=== PATIENT | male | born 1940 | race Caucasian/White ===

== ENCOUNTER 2022-12-12 05:58 | Day surgery (SDC) | payer MEDICARE ==
[2022-12-11 10:54] VITALS: BMI 27.5
[2022-12-12] MEDS ORDERED: Heparin 10,000 UNITS/ 10 ML VIAL ONE (06:15)
[2022-12-12] MEDS ORDERED: Lidocaine 1% (PF) 30 ML VIAL ONE (06:15)
[2022-12-12] MEDS ORDERED: Nitroglycerin 50 MG/250 ML BOT 0 ML ONE (06:15)
[2022-12-12 07:22] LABS: SARS-CoV-2 NAA Rapid Test DETECTED (NotDetected)
== END 2022-12-12 07:09 | disposition home or self-care (01) ==
LOC: CCL 05:58
PROVIDERS: ATTEND Internal Medicine Cardiovascular Disease
DX: U07.1 COVID-19 (principal); R94.39 Abnormal result of other cardiovascular function study; I25.10 Atherosclerotic heart disease of native coronary artery without angina pectoris; I49.3 Ventricular premature depolarization; I47.20 Ventricular tachycardia, unspecified; I35.1 Nonrheumatic aortic (valve) insufficiency; E78.00 Pure hypercholesterolemia, unspecified; I10 Essential (primary) hypertension; R73.03 Prediabetes; E03.9 Hypothyroidism, unspecified; I25.2 Old myocardial infarction; Z53.09 Procedure and treatment not carried out because of other contraindication; Z87.891 Personal history of nicotine dependence; Z79.82 Long term (current) use of aspirin; Z79.890 Hormone replacement therapy; Z79.899 Other long term (current) drug therapy; Z88.5 Allergy status to narcotic agent; Z95.5 Presence of coronary angioplasty implant and graft
CPT/HCPCS: J1644; J2001; U0002

== ENCOUNTER 2022-12-27 13:42 | Inpatient (IN) | payer MEDICARE ==
[2022-12-27 14:25] LABS: #Basophils 0.1 thou/uL (0.0-0.2); #Eosinphils 0.5 thou/uL (0.0-0.7); #Lymphocytes 2.6 thou/uL (1.20-3.40); #Monocytes 0.8 thou/uL (0.11-0.59); #Neutrophils 5.1 thou/uL (1.40-6.50); %Basophils 1.1 % (0.0-1.0); %Eosinophils 5.4 % (0.0-10.0); %Lymphocytes 28.6 % (21.0-51.0); %Monocytes 8.9 % (0.0-10.0); %Neutrophils 56.1 % (42.0-75.0); Hemoglobin 14.2 g/dL (14.0-18.0); Mean Corpuscular HGB CONC 32.5 g/dL (32.0-36.0); Mean Corpuscular Hemoglobin 33.1 pg (27.0-31.0); Mean Platelet Volume 7.7 fL (7.4-10.4); Platelet Count 281 10x3/uL (130-400)
[2022-12-27 14:44] LABS: ALT (SGPT) 42 U/L (8-55); AST (SGOT) 37 U/L (5-34); Albumin 4.1 g/dL (3.4-4.8); Alkaline Phosphatase 67 U/L (40-110); Anion Gap 15 mmol/L (10-20); BUN (Urea Nitrogen) 30 mg/dL (8.4-25.7); Bilirubin, Total 1.2 mg/dL (0.2-1.2); CRP (Inflammatory) Less than 0.50 mg/dL (= or < 0.5); Calc. Creatinine Clearance 0 mL/min (70-130); Calcium 9.3 mg/dL (7.8-10.44); Carbon Dioxide 22 mmol/L (23-31); Chloride 107 mmol/L (98-107); Estimated GFR 50; Globulin 2.5 g/dL (2.4-3.5); Glucose 117 mg/dL (83-110); Magnesium 1.9 mg/dL (1.6-2.6); Potassium 4.1 mmol/L (3.5-5.1); Protein, Total 6.6 g/dL (5.8-8.1); Sodium 140 mmol/L (136-145)
[2022-12-27 15:06] LABS: CKMB 2.4 ng/mL (0-6.6)
[2022-12-27] MEDS ORDERED: Aspirin 325 MG TAB ONE (16:03)
[2022-12-27] MEDS ORDERED: Furosemide 40 MG/4 ML VIAL ONE (16:03)
[2022-12-27] MEDS ORDERED: Acetaminophen 325 MG TAB PO PRN (17:32)
[2022-12-27] MEDS ORDERED: Senokot S 8.6-50 MG TAB PO PRN (17:32)
[2022-12-27] MEDS ORDERED: Ondansetron PF 4 MG/2 ML Vial IVP PRN (17:32)
[2022-12-27] MEDS ORDERED: Bisacodyl 5 MG TAB PO PRN (17:32)
[2022-12-27] MEDS ORDERED: tiZANidine HCl 4 MG TAB PO PRN (17:54)
[2022-12-27 17:57] LABS: Troponin I 0.046 ng/mL (< 0.028)
[2022-12-27 18:45] VITALS: BMI 26.5
[2022-12-27] MEDS ORDERED: Aspirin 81 mg Enteric Coated Tablet PO SCH (18:45)
[2022-12-27] MEDS ORDERED: Communication Order-Pharmacy FS SCH (20:00)
[2022-12-27] MEDS: Carvedilol 6.25 MG TAB PO SCH (20:28)
[2022-12-27] MEDS: Famotidine 20 MG TAB PO SCH (20:29)
[2022-12-27] MEDS: Atorvastatin Calcium 40 MG TAB PO SCH (20:29)
[2022-12-27 20:59] LABS: Troponin I 0.041 ng/mL (< 0.028)
[2022-12-28] MEDS ORDERED: Sodium Chloride 0.9% 500 ML IV SCH ×2 (00:01→11:00)
[2022-12-28 04:22] LABS: #Basophils 0.1 thou/uL (0.0-0.2); #Eosinphils 0.6 thou/uL (0.0-0.7); #Lymphocytes 2.7 thou/uL (1.20-3.40); #Monocytes 0.8 thou/uL (0.11-0.59); #Neutrophils 2.5 thou/uL (1.40-6.50); %Basophils 1.1 % (0.0-1.0); %Eosinophils 8.9 % (0.0-10.0); %Lymphocytes 40.6 % (21.0-51.0); %Monocytes 12.5 % (0.0-10.0); %Neutrophils 36.9 % (42.0-75.0); Hemoglobin 12.3 g/dL (14.0-18.0); Mean Corpuscular Hemoglobin 34.7 pg (27.0-31.0); Mean Platelet Volume 7.7 fL (7.4-10.4); Platelet Count 216 10x3/uL (130-400); RBC Distribution Width 11.9 % (11.5-14.5); Red Blood Cell (RBC) Count 3.55 mill/uL (4.70-6.10); White Blood Cell (WBC) Count 6.6 10x3/uL (4.8-10.8)
[2022-12-28] MEDS ORDERED: guaiFENesin ER 600 MG TAB PO SCH (04:30)
[2022-12-28 04:38] LABS: Hemoglobin A1c 5.5 % (4.0-6.0)
[2022-12-28 04:51] LABS: Anion Gap 12 mmol/L (10-20); BUN (Urea Nitrogen) 32 mg/dL (8.4-25.7); Calc. Creatinine Clearance 49 mL/min (70-130); Calcium 8.8 mg/dL (7.8-10.44); Carbon Dioxide 23 mmol/L (23-31); Cardiac Risk 2.4 (Less than 4.5); Chloride 109 mmol/L (98-107); Cholesterol 98 mg/dl (< 200 Desired); Estimated GFR 45; Glucose 93 mg/dL (83-110); HDL Cholesterol 41 mg/dL (>60 Neg Risk); LDL Cholesterol, Calculated 48 mg/dL; Potassium 3.8 mmol/L (3.5-5.1); Sodium 140 mmol/L (136-145); Triglycerides 47 mg/dL (Less than 150)
[2022-12-28] MEDS: Famotidine 20 MG TAB PO SCH ×2 (05:37→22:08)
[2022-12-28] MEDS: Levothyroxine Sodium 125 MCG TAB PO SCH (05:40)
[2022-12-28] MEDS: Carvedilol 6.25 MG TAB PO SCH ×2 (05:42→22:08)
[2022-12-28] MEDS ORDERED: Verapamil 5 MG/2 ML VIAL ONE (09:26)
[2022-12-28] MEDS ORDERED: Heparin 10,000 UNITS/ 10 ML VIAL ONE (09:26)
[2022-12-28] MEDS ORDERED: Lidocaine 1% PF 5 ML VIAL ONE (09:26)
[2022-12-28] MEDS ORDERED: Nitroglycerin 50 MG/250 ML BOT 250 ML ONE (09:26)
[2022-12-28] MEDS ORDERED: Iopamidol 370 76% 100 ML VIAL ONE (09:49)
[2022-12-28] MEDS ORDERED: fentaNYL 50 mcg/mL 1 mL Vial ONE (10:19)
[2022-12-28] MEDS ORDERED: Midazolam HCl 2 mg/2 ml Vial ONE (10:19)
[2022-12-28] MEDS ORDERED: Nitroglycerin 0.4 MG TAB (25 Tab Bottle) SL PRN (10:49)
[2022-12-28] MEDS ORDERED: Sodium Chloride 0.9% 200 ML IV PRN (10:49)
[2022-12-28] MEDS ORDERED: Acetaminophen/Codeine 30-300mg Tablet PO PRN (10:49)
[2022-12-28] MEDS: Atorvastatin Calcium 40 MG TAB PO SCH (22:08)
[2022-12-28] MEDS: guaiFENesin ER 600 MG TAB PO SCH (22:08)
[2022-12-29 04:36] LABS: #Basophils 0.1 thou/uL (0.0-0.2); #Eosinphils 0.5 thou/uL (0.0-0.7); #Lymphocytes 2.2 thou/uL (1.20-3.40); #Monocytes 0.7 thou/uL (0.11-0.59); #Neutrophils 2.8 thou/uL (1.40-6.50); %Basophils 1.1 % (0.0-1.0); %Eosinophils 7.9 % (0.0-10.0); %Lymphocytes 34.6 % (21.0-51.0); %Monocytes 11.2 % (0.0-10.0); %Neutrophils 45.2 % (42.0-75.0); Hemoglobin 12.3 g/dL (14.0-18.0); Mean Corpuscular HGB CONC 34.6 g/dL (32.0-36.0); Mean Corpuscular Hemoglobin 35.6 pg (27.0-31.0); Mean Platelet Volume 7.5 fL (7.4-10.4); Platelet Count 209 10x3/uL (130-400); RBC Distribution Width 11.9 % (11.5-14.5); Red Blood Cell (RBC) Count 3.47 mill/uL (4.70-6.10); White Blood Cell (WBC) Count 6.3 10x3/uL (4.8-10.8)
[2022-12-29 04:55] LABS: Anion Gap 12 mmol/L (10-20); BUN (Urea Nitrogen) 26 mg/dL (8.4-25.7); Calc. Creatinine Clearance 54 mL/min (70-130); Calcium 8.6 mg/dL (7.8-10.44); Carbon Dioxide 21 mmol/L (23-31); Chloride 112 mmol/L (98-107); Estimated GFR 50; Glucose 93 mg/dL (83-110); Potassium 3.8 mmol/L (3.5-5.1); Sodium 141 mmol/L (136-145)
[2022-12-29] MEDS: Levothyroxine Sodium 125 MCG TAB PO SCH (05:48)
[2022-12-29] MEDS ORDERED: Clopidogrel Bisulfate 75 MG TAB PO SCH (09:00)
[2022-12-29] MEDS: Carvedilol 6.25 MG TAB PO SCH (09:21)
[2022-12-29] MEDS: guaiFENesin ER 600 MG TAB PO SCH (09:22)
[2022-12-29] MEDS: Famotidine 20 MG TAB PO SCH (09:22)
[2022-12-29 15:59] VITALS: TEMP 98.3
[2022-12-29 18:11] VITALS: BP 112/62
[2022-12-30] MEDS ORDERED: Aspirin 81 mg Enteric Coated Tablet PO SCH (09:00)
== END 2022-12-29 18:00 | disposition home or self-care (01) | DRG 287 ==
LOC: ERS 13:42 → 2NO 18:24 → OBSVTOIN 12-29 15:10
PROVIDERS: ADMIT Internal Medicine; ATTEND Internal Medicine
PROC: 4A023N7 Measurement of Cardiac Sampling and Pressure, Left Heart, Percutaneous Approach (ICD-10-PCS; principal; 2022-12-28)
PROC: B2111ZZ Fluoroscopy of Multiple Coronary Arteries using Low Osmolar Contrast (ICD-10-PCS; 2022-12-28)
DX: I25.119 Atherosclerotic heart disease of native coronary artery with unspecified angina pectoris (principal); E78.00 Pure hypercholesterolemia, unspecified; E03.9 Hypothyroidism, unspecified; I48.91 Unspecified atrial fibrillation; G89.29 Other chronic pain; N18.30 Chronic kidney disease, stage 3 unspecified; I12.9 Hypertensive chronic kidney disease with stage 1 through stage 4 chronic kidney disease, or unspecified chronic kidney disease; Z88.8 Allergy status to other drugs, medicaments and biological substances; Z79.82 Long term (current) use of aspirin; Z79.899 Other long term (current) drug therapy; Z98.890 Other specified postprocedural states; Z87.891 Personal history of nicotine dependence; Z86.16 Personal history of COVID-19; I25.2 Old myocardial infarction
CPT/HCPCS: 36415; 71045; 80048; 80053; 80061; 82553; 83036; 83735; 83880; 84439; 84443; 84484; 85025; 86140; 93005; 93458; 94760; 96372; 96374; 99152; C1769; C1894; G0378; J1644; J1650; J1940; J2250; J3010; J7030; Q9967

== ENCOUNTER 2023-01-05 06:18 | Day surgery (SDC) | payer MEDICARE ==
[2023-01-04 09:26] VITALS: BMI 26.5
[2023-01-05] MEDS ORDERED: Heparin 10,000 UNITS/ 10 ML VIAL ONE (06:52)
[2023-01-05] MEDS ORDERED: Lidocaine 1% (PF) 30 ML VIAL ONE ×2 (06:52→08:27)
[2023-01-05] MEDS ORDERED: Midazolam HCl 2 mg/2 ml Vial ONE (07:55)
[2023-01-05] MEDS ORDERED: fentaNYL 50 mcg/mL 1 mL Vial ONE (07:55)
[2023-01-05] MEDS ORDERED: PHENYLEPHRINE-NS 100 MCG/ML 10 ML SYRINGE ONE (08:00)
[2023-01-05] MEDS ORDERED: Atropine Sulfate 1 mg/10 ml Syringe ONE (08:00)
[2023-01-05] MEDS ORDERED: Verapamil 5 MG/2 ML VIAL ONE (08:19)
[2023-01-05] MEDS ORDERED: Nitroglycerin 50 MG/250 ML BOT 0 ML ONE (08:19)
[2023-01-05] MEDS ORDERED: Protamine Sulfate 50 MG/5 ML VIAL ONE (09:54)
[2023-01-05] MEDS ORDERED: Iopamidol 370 76% 100 ML VIAL ONE (11:07)
== END 2023-01-05 13:48 | disposition home or self-care (01) ==
LOC: CCL 06:18
PROVIDERS: ATTEND Internal Medicine Cardiovascular Disease
PROC: 4A023N7 Measurement of Cardiac Sampling and Pressure, Left Heart, Percutaneous Approach (ICD-10-PCS; principal; 2023-01-05)
PROC: B2111ZZ Fluoroscopy of Multiple Coronary Arteries using Low Osmolar Contrast (ICD-10-PCS; 2023-01-05)
DX: I25.10 Atherosclerotic heart disease of native coronary artery without angina pectoris (principal); I25.84 Coronary atherosclerosis due to calcified coronary lesion; I49.3 Ventricular premature depolarization; I49.1 Atrial premature depolarization; I47.1 Supraventricular tachycardia; I35.1 Nonrheumatic aortic (valve) insufficiency; E78.00 Pure hypercholesterolemia, unspecified; I12.9 Hypertensive chronic kidney disease with stage 1 through stage 4 chronic kidney disease, or unspecified chronic kidney disease; N18.30 Chronic kidney disease, stage 3 unspecified; R73.03 Prediabetes; E03.9 Hypothyroidism, unspecified; I25.2 Old myocardial infarction; Z87.891 Personal history of nicotine dependence; Z79.02 Long term (current) use of antithrombotics/antiplatelets; Z79.82 Long term (current) use of aspirin; Z79.899 Other long term (current) drug therapy; Z88.5 Allergy status to narcotic agent
CPT/HCPCS: 85347 ×2; 93005; 93454; J3010; 93010; 99152; 99153; C1725; C1761; C1769; C1887; J0461; J1644; J2001; J2250; J2720; Q9967

== ENCOUNTER 2023-04-06 14:39 | Inpatient (IN) | payer OTHER, MEDICARE ==
[2023-04-06 15:14] LABS: #Basophils 0.1 thou/uL (0.0-0.2); #Eosinphils 0.2 thou/uL (0.0-0.7); #Monocytes 1.1 thou/uL (0.11-0.59); #Neutrophils 3.7 thou/uL (1.40-6.50); %Basophils 0.7 % (0.0-1.0); %Eosinophils 2.9 % (0.0-10.0); Hemoglobin 11.7 g/dL (14.0-18.0); Mean Corpuscular HGB CONC 33.4 g/dL (32.0-36.0); Mean Corpuscular Volume 104.8 fl (78.0-98.0); Mean Platelet Volume 9.8 fL (7.4-10.4); Platelet Count 198 10x3/uL (130-400); Red Blood Cell (RBC) Count 3.34 mill/uL (4.70-6.10)
[2023-04-06 15:37] LABS: ALT (SGPT) 13 U/L (8-55); AST (SGOT) 23 U/L (5-34); Albumin 3.8 g/dL (3.4-4.8); Alkaline Phosphatase 55 U/L (40-110); Anion Gap 13 mmol/L (10-20); BUN (Urea Nitrogen) 32 mg/dL (8.4-25.7); Bilirubin, Total 0.6 mg/dL (0.2-1.2); Calc. Creatinine Clearance 0 mL/min (70-130); Calcium 8.8 mg/dL (7.8-10.44); Carbon Dioxide 21 mmol/L (23-31); Chloride 111 mmol/L (98-107); Estimated GFR 30; Globulin 2.1 g/dL (2.4-3.5); Glucose 120 mg/dL (83-110); Lipase 30 U/L (8-78); Potassium 4.2 mmol/L (3.5-5.1); Protein, Total 5.9 g/dL (5.8-8.1); Sodium 141 mmol/L (136-145)
[2023-04-06] MEDS ORDERED: Glucagon 1 MG/ML KIT IM PRN (17:31)
[2023-04-06] MEDS ORDERED: Ondansetron PF 4 MG/2 ML Vial IVP PRN (17:31)
[2023-04-06] MEDS ORDERED: hydrALAZINE 20 MG/ML VIAL SLOW IVP PRN (17:31)
[2023-04-06] MEDS ORDERED: Ipratropium/Albuterol 3 ML NEB NEB PRN (17:31)
[2023-04-06] MEDS ORDERED: Dextrose 50% Abboject 50 ML SYRINGE SLOW IVP PRN (17:31)
[2023-04-06] MEDS ORDERED: Ondansetron ODT 4 MG TAB PO PRN (17:31)
[2023-04-06] MEDS ORDERED: Dextrose 5% in Water 1,000 ML IV PRN (17:31)
[2023-04-06] MEDS ORDERED: Cyclobenzaprine 10 MG TAB PO PRN (17:45)
[2023-04-06] MEDS ORDERED: Rib Fracture Protocol PO SCH (17:45)
[2023-04-06] MEDS ORDERED: Ondansetron PF 4 MG/2 ML Vial ONE (18:23)
[2023-04-06] MEDS ORDERED: HYDROmorphone 0.5 MG/0.5 ML SYRINGE ONE (18:23)
[2023-04-06] MEDS: Ipratropium/Albuterol 3 ML NEB NEB SCH ×2 (19:00→22:37)
[2023-04-06] MEDS: Gabapentin 100 MG CAP PO SCH (20:51)
[2023-04-06] MEDS: Famotidine 20 MG TAB PO SCH (20:52)
[2023-04-06 21:29] LABS: Phosphorus 3.6 mg/dL (2.3-4.7)
[2023-04-06 21:46] VITALS: BMI 29.5
[2023-04-06] MEDS: traMADol HCl 50 MG TAB PO SCH (23:32)
[2023-04-06] MEDS: Acetaminophen 500 MG TAB PO SCH ×2 (23:32→23:33)
[2023-04-07] MEDS: traMADol HCl 50 MG TAB PO SCH ×4 (00:27→18:31)
[2023-04-07] MEDS: Ibuprofen 200 MG TAB PO SCH ×3 (00:27→23:37)
[2023-04-07 05:08] LABS: #Eosinphils 0.2 thou/uL (0.0-0.7); #Monocytes 1.1 thou/uL (0.11-0.59); #Neutrophils 3.7 thou/uL (1.40-6.50); %Basophils 0.4 % (0.0-1.0); %Eosinophils 3.6 % (0.0-10.0); %Monocytes 16.7 % (0.0-10.0); Hemoglobin 10.5 g/dL (14.0-18.0); Mean Corpuscular HGB CONC 33.3 g/dL (32.0-36.0); Mean Platelet Volume 9.8 fL (7.4-10.4); Platelet Count 165 10x3/uL (130-400); White Blood Cell (WBC) Count 6.7 10x3/uL (4.8-10.8)
[2023-04-07 06:12] LABS: Phosphorus 3.9 mg/dL (2.3-4.7)
[2023-04-07 06:20] LABS: Anion Gap 12 mmol/L (10-20); BUN (Urea Nitrogen) 29 mg/dL (8.4-25.7); Calc. Creatinine Clearance 43 mL/min (70-130); Calcium 8.6 mg/dL (7.8-10.44); Carbon Dioxide 22 mmol/L (23-31); Chloride 108 mmol/L (98-107); Estimated GFR 39; Glucose 127 mg/dL (83-110); Potassium 4.1 mmol/L (3.5-5.1); Sodium 138 mmol/L (136-145)
[2023-04-07] MEDS: Acetaminophen 500 MG TAB PO SCH ×3 (06:49→18:04)
[2023-04-07] MEDS: Ipratropium/Albuterol 3 ML NEB NEB SCH ×3 (07:25→18:33)
[2023-04-07] MEDS ORDERED: Non-Formulary Item 1 EACH (Carvedilol [Coreg] 12.5 MG Tab) PO SCH (09:00)
[2023-04-07] MEDS: Gabapentin 100 MG CAP PO SCH ×3 (09:03→20:46)
[2023-04-07] MEDS: Famotidine 20 MG TAB PO SCH ×2 (09:03→20:47)
[2023-04-07] MEDS: Levothyroxine Sodium 125 MCG TAB PO SCH (09:04)
[2023-04-07] MEDS: Clopidogrel Bisulfate 75 MG TAB PO SCH (09:04)
[2023-04-07] MEDS: Carvedilol 6.25 MG TAB PO SCH ×2 (09:08→20:47)
[2023-04-07] MEDS ORDERED: Sodium Chloride 0.9% 500 ML IV SCH (12:30)
[2023-04-07] MEDS: Atorvastatin Calcium 40 MG TAB PO SCH (20:46)
[2023-04-07] MEDS: Aspirin 81 mg Enteric Coated Tablet PO SCH (20:46)
[2023-04-07] MEDS ORDERED: Non-Formulary Item 1 EACH (Atorvastatin Calcium [Lipitor] 80 MG Tablet) PO SCH (21:00)
[2023-04-08] MEDS: Ipratropium/Albuterol 3 ML NEB NEB SCH ×3 (00:24→13:24)
[2023-04-08] MEDS: Acetaminophen 500 MG TAB PO SCH ×4 (01:12→18:15)
[2023-04-08] MEDS: traMADol HCl 50 MG TAB PO SCH ×4 (01:13→18:14)
[2023-04-08 05:09] LABS: #Basophils 0.1 thou/uL (0.0-0.2); #Eosinphils 0.5 thou/uL (0.0-0.7); #Monocytes 0.9 thou/uL (0.11-0.59); #Neutrophils 2.9 thou/uL (1.40-6.50); %Eosinophils 8.8 % (0.0-10.0); %Lymphocytes 26.4 % (21.0-51.0); %Monocytes 15.4 % (0.0-10.0); %Neutrophils 47.9 % (42.0-75.0); Hemoglobin 9.3 g/dL (14.0-18.0); Mean Corpuscular HGB CONC 32.2 g/dL (32.0-36.0); Mean Corpuscular Hemoglobin 34.3 pg (27.0-31.0); Mean Corpuscular Volume 106.6 fl (78.0-98.0); Mean Platelet Volume 10.1 fL (7.4-10.4); Platelet Count 149 10x3/uL (130-400); RBC Distribution Width 12.9 % (11.5-14.5); Red Blood Cell (RBC) Count 2.71 mill/uL (4.70-6.10); White Blood Cell (WBC) Count 6.1 10x3/uL (4.8-10.8)
[2023-04-08 05:44] LABS: Anion Gap 7 mmol/L (10-20); BUN (Urea Nitrogen) 36 mg/dL (8.4-25.7); Calc. Creatinine Clearance 37 mL/min (70-130); Calcium 8.3 mg/dL (7.8-10.44); Carbon Dioxide 24 mmol/L (23-31); Chloride 106 mmol/L (98-107); Estimated GFR 33; Glucose 104 mg/dL (83-110); Phosphorus 4.5 mg/dL (2.3-4.7); Potassium 4.3 mmol/L (3.5-5.1); Sodium 133 mmol/L (136-145)
[2023-04-08] MEDS: Ibuprofen 200 MG TAB PO SCH (06:42)
[2023-04-08] MEDS ORDERED: Sodium Chloride 0.9% 500 ML IV SCH (07:45)
[2023-04-08] MEDS: Levothyroxine Sodium 125 MCG TAB PO SCH (08:22)
[2023-04-08] MEDS: Tamsulosin HCl 0.4 MG CAP PO SCH (08:22)
[2023-04-08] MEDS: Carvedilol 6.25 MG TAB PO SCH ×2 (08:22→22:38)
[2023-04-08] MEDS: Gabapentin 100 MG CAP PO SCH ×3 (08:22→22:39)
[2023-04-08] MEDS: Famotidine 20 MG TAB PO SCH ×2 (08:23→22:39)
[2023-04-08] MEDS: Clopidogrel Bisulfate 75 MG TAB PO SCH (08:23)
[2023-04-08 15:59] LABS: Anion Gap 12 mmol/L (10-20); BUN (Urea Nitrogen) 33 mg/dL (8.4-25.7); Calc. Creatinine Clearance 40 mL/min (70-130); Calcium 8.3 mg/dL (7.8-10.44); Carbon Dioxide 22 mmol/L (23-31); Chloride 101 mmol/L (98-107); Estimated GFR 36; Glucose 99 mg/dL (83-110); Potassium 4.4 mmol/L (3.5-5.1); Sodium 131 mmol/L (136-145)
[2023-04-08] MEDS ORDERED: Sodium Chloride 0.9% 1,000 ML IV SCH (16:30)
[2023-04-08] MEDS: Atorvastatin Calcium 40 MG TAB PO SCH (22:38)
[2023-04-08] MEDS: Aspirin 81 mg Enteric Coated Tablet PO SCH (22:38)
[2023-04-09] MEDS: Acetaminophen 500 MG TAB PO SCH ×3 (01:11→12:08)
[2023-04-09] MEDS: traMADol HCl 50 MG TAB PO SCH ×3 (01:12→12:08)
[2023-04-09 04:24] LABS: #Basophils 0.1 thou/uL (0.0-0.2); #Eosinphils 0.5 thou/uL (0.0-0.7); #Monocytes 0.7 thou/uL (0.11-0.59); #Neutrophils 2.9 thou/uL (1.40-6.50); %Basophils 0.9 % (0.0-1.0); %Eosinophils 8.6 % (0.0-10.0); %Lymphocytes 25.9 % (21.0-51.0); %Monocytes 12.7 % (0.0-10.0); %Neutrophils 51.7 % (42.0-75.0); Hemoglobin 9.4 g/dL (14.0-18.0); Mean Corpuscular Hemoglobin 34.7 pg (27.0-31.0); Mean Corpuscular Volume 105.2 fl (78.0-98.0); Mean Platelet Volume 9.6 fL (7.4-10.4); Platelet Count 132 10x3/uL (130-400); RBC Distribution Width 12.5 % (11.5-14.5); Red Blood Cell (RBC) Count 2.71 mill/uL (4.70-6.10); White Blood Cell (WBC) Count 5.7 10x3/uL (4.8-10.8)
[2023-04-09 04:51] LABS: Anion Gap 10 mmol/L (10-20); BUN (Urea Nitrogen) 32 mg/dL (8.4-25.7); Calc. Creatinine Clearance 43 mL/min (70-130); Calcium 8.1 mg/dL (7.8-10.44); Carbon Dioxide 21 mmol/L (23-31); Chloride 103 mmol/L (98-107); Estimated GFR 40; Glucose 101 mg/dL (83-110); Magnesium 1.7 mg/dL (1.6-2.6); Phosphorus 3.8 mg/dL (2.3-4.7); Potassium 4.9 mmol/L (3.5-5.1); Sodium 129 mmol/L (136-145)
[2023-04-09] MEDS ORDERED: Milk Of Magnesia 30 ML UDCUP PO SCH (09:00)
[2023-04-09] MEDS ORDERED: Polyethylene Glycol 3350 17 GM Packet PO SCH (09:00)
[2023-04-09] MEDS ORDERED: Senokot S 8.6-50 MG TAB PO SCH (09:00)
[2023-04-09] MEDS ORDERED: Bisacodyl 10 MG SUPP PR SCH (09:00)
[2023-04-09] MEDS: Levothyroxine Sodium 125 MCG TAB PO SCH (09:49)
[2023-04-09] MEDS: Carvedilol 6.25 MG TAB PO SCH (09:49)
[2023-04-09] MEDS: Clopidogrel Bisulfate 75 MG TAB PO SCH (09:49)
[2023-04-09] MEDS: Gabapentin 100 MG CAP PO SCH (09:50)
[2023-04-09] MEDS: Famotidine 20 MG TAB PO SCH (09:50)
[2023-04-09] MEDS: Tamsulosin HCl 0.4 MG CAP PO SCH (09:50)
[2023-04-09 12:25] VITALS: BP 100/56; TEMP 96.5
[2023-04-09 12:33] LABS: Anion Gap 14 mmol/L (10-20); BUN (Urea Nitrogen) 31 mg/dL (8.4-25.7); Calc. Creatinine Clearance 42 mL/min (70-130); Calcium 8.6 mg/dL (7.8-10.44); Carbon Dioxide 20 mmol/L (23-31); Chloride 101 mmol/L (98-107); Estimated GFR 39; Glucose 86 mg/dL (83-110); Potassium 4.6 mmol/L (3.5-5.1); Sodium 130 mmol/L (136-145)
== END 2023-04-09 15:53 | disposition home health service (06) | DRG 184 ==
LOC: ERS 14:39 → 2NO 17:31
PROVIDERS: ADMIT Surgery; ATTEND Surgery
DX: S22.43XA Multiple fractures of ribs, bilateral, initial encounter for closed fracture (principal); I24.8 Other forms of acute ischemic heart disease; N17.9 Acute kidney failure, unspecified; E03.9 Hypothyroidism, unspecified; E78.5 Hyperlipidemia, unspecified; I50.9 Heart failure, unspecified; I11.0 Hypertensive heart disease with heart failure; I48.91 Unspecified atrial fibrillation; G89.29 Other chronic pain; R77.8 Other specified abnormalities of plasma proteins; D64.9 Anemia, unspecified; I25.10 Atherosclerotic heart disease of native coronary artery without angina pectoris; H54.7 Unspecified visual loss; Y92.89 Other specified places as the place of occurrence of the external cause; V89.2XXA Person injured in unspecified motor-vehicle accident, traffic, initial encounter; I25.2 Old myocardial infarction; Z98.890 Other specified postprocedural states; Z95.5 Presence of coronary angioplasty implant and graft; Z87.891 Personal history of nicotine dependence; Z88.8 Allergy status to other drugs, medicaments and biological substances
CPT/HCPCS: 36415; 36416; 70450; 71045; 71250; 72125; 74177; 80048; 80053; 82553; 83690; 83735; 83880; 84100; 84484; 85025; 93005; 96374; 96375; J1170; J2405; J7030; J7050; J7620

== ENCOUNTER 2023-04-09 19:35 | Inpatient (IN) | payer MEDICARE ==
[~2023-04-09 19:35] MED LIST: Iopamidol-370 76% 500 ML MDV (1 ML CHARGE) ONE
[2023-04-09] MEDS ORDERED: Acetaminophen 500 MG TAB ONE (20:07)
[2023-04-09 20:56] LABS: #Basophils 0.1 thou/uL (0.0-0.2); #Eosinphils 0.3 thou/uL (0.0-0.7); #Monocytes 0.9 thou/uL (0.11-0.59); #Neutrophils 4.6 thou/uL (1.40-6.50); %Basophils 0.7 % (0.0-1.0); %Eosinophils 3.9 % (0.0-10.0); %Lymphocytes 15.5 % (21.0-51.0); %Monocytes 12.3 % (0.0-10.0); %Neutrophils 67.3 % (42.0-75.0); Hemoglobin 10.5 g/dL (14.0-18.0); Mean Corpuscular HGB CONC 33.7 g/dL (32.0-36.0); Mean Corpuscular Hemoglobin 34.7 pg (27.0-31.0); Mean Platelet Volume 9.4 fL (7.4-10.4); Platelet Count 165 10x3/uL (130-400); RBC Distribution Width 12.5 % (11.5-14.5); Red Blood Cell (RBC) Count 3.03 mill/uL (4.70-6.10); White Blood Cell (WBC) Count 6.9 10x3/uL (4.8-10.8)
[2023-04-09 21:05] LABS: ALT (SGPT) 17 U/L (8-55); AST (SGOT) 37 U/L (5-34); Albumin 3.2 g/dL (3.4-4.8); Alkaline Phosphatase 52 U/L (40-110); Anion Gap 8 mmol/L (10-20); BUN (Urea Nitrogen) 34 mg/dL (8.4-25.7); Bilirubin, Total 0.8 mg/dL (0.2-1.2); Calc. Creatinine Clearance 0 mL/min (70-130); Calcium 8.5 mg/dL (7.8-10.44); Carbon Dioxide 20 mmol/L (23-31); Chloride 104 mmol/L (98-107); Estimated GFR 37; Globulin 2.3 g/dL (2.4-3.5); Glucose 113 mg/dL (83-110); Potassium 4.8 mmol/L (3.5-5.1); Protein, Total 5.5 g/dL (5.8-8.1); Sodium 127 mmol/L (136-145)
[2023-04-09] MEDS ORDERED: Ipratropium/Albuterol 3 ML NEB NEB PRN (22:53)
[2023-04-09] MEDS ORDERED: Ondansetron ODT 4 MG TAB PO PRN (22:53)
[2023-04-09] MEDS ORDERED: Dextrose 5% in Water 1,000 ML IV PRN ×2 (22:53→23:03)
[2023-04-09] MEDS ORDERED: Morphine 2 MG/ML VIAL SLOW IVP PRN (22:53)
[2023-04-09] MEDS ORDERED: hydrALAZINE 20 MG/ML VIAL SLOW IVP PRN (22:53)
[2023-04-09] MEDS ORDERED: traMADol HCl 50 MG TAB PO PRN (22:53)
[2023-04-09] MEDS ORDERED: Dextrose 50% Abboject 50 ML SYRINGE SLOW IVP PRN ×2 (22:53→23:03)
[2023-04-09] MEDS ORDERED: TETANUS, DIPHTHERIA TOX,ADULT (TDVAX) 0.5 ML VIAL IM ONE ×2 (22:53→23:03)
[2023-04-09] MEDS ORDERED: Glucagon 1 MG/ML KIT IM PRN ×2 (22:53→23:03)
[2023-04-09] MEDS ORDERED: Acetaminophen 325 MG TAB PO SCH (23:00)
[2023-04-09] MEDS ORDERED: Rib Fracture Protocol PO SCH (23:00)
[2023-04-09] MEDS ORDERED: TETANUS AND DIPHTHERIA TOX/PF 0.5 ML DISP.SYRIN IM SCH (23:15)
[2023-04-09] MEDS ORDERED: Cyclobenzaprine 10 MG TAB PO PRN (23:59)
[2023-04-10] MEDS: Sodium Chloride 0.9% 1,000 ML IV SCH ×2 (00:17→06:52)
[2023-04-10] MEDS: traMADol HCl 50 MG TAB PO SCH ×4 (00:26→22:39)
[2023-04-10] MEDS: Acetaminophen 500 MG TAB PO SCH ×5 (00:26→22:40)
[2023-04-10] MEDS ORDERED: TETANUS, DIPHTHERIA TOX,ADULT (TDVAX) 0.5 ML VIAL IM ONE ×2 (00:30→00:54)
[2023-04-10] MEDS ORDERED: Ipratropium/Albuterol 3 ML NEB ONE ×3 (02:46→12:41)
[2023-04-10] MEDS: Ipratropium/Albuterol 3 ML NEB NEB SCH ×4 (02:47→18:38)
[2023-04-10 03:18] VITALS: BMI 26.9
[2023-04-10] MEDS ORDERED: Ibuprofen 200 MG TAB PO SCH (06:00)
[2023-04-10] MEDS ORDERED: Acetaminophen 500 MG TAB ONE (06:23)
[2023-04-10] MEDS ORDERED: Ibuprofen 200 MG TAB ONE ×2 (06:24)
[2023-04-10] MEDS ORDERED: traMADol HCl 50 MG TAB ONE (06:24)
[2023-04-10] MEDS ORDERED: Famotidine 20 MG TAB ONE (10:44)
[2023-04-10] MEDS: Carvedilol 6.25 MG TAB PO SCH ×2 (10:51→19:36)
[2023-04-10] MEDS: Senokot S 8.6-50 MG TAB PO SCH ×2 (10:52→19:35)
[2023-04-10] MEDS: Famotidine 20 MG TAB PO SCH (10:52)
[2023-04-10] MEDS: Polyethylene Glycol 3350 17 GM Packet PO SCH (10:52)
[2023-04-10] MEDS: Gabapentin 100 MG CAP PO SCH ×3 (13:26→19:36)
[2023-04-10] MEDS ORDERED: traMADol HCl 50 MG TAB PO PRN (14:30)
[2023-04-10] MEDS ORDERED: Sodium Chloride 0.9% 1,000 ML IV SCH (14:45)
[2023-04-10] MEDS: Clopidogrel Bisulfate 75 MG TAB PO SCH (19:36)
[2023-04-11] MEDS: Ipratropium/Albuterol 3 ML NEB NEB SCH ×4 (00:53→19:13)
[2023-04-11 05:02] LABS: Anion Gap 14 mmol/L (10-20); BUN (Urea Nitrogen) 29 mg/dL (8.4-25.7); Calc. Creatinine Clearance 45 mL/min (70-130); Carbon Dioxide 20 mmol/L (23-31); Chloride 109 mmol/L (98-107); Estimated GFR 40; Glucose 101 mg/dL (83-110); Magnesium 2.2 mg/dL (1.6-2.6); Phosphorus 3.3 mg/dL (2.3-4.7); Potassium 4.9 mmol/L (3.5-5.1); Sodium 138 mmol/L (136-145)
[2023-04-11] MEDS: Acetaminophen 500 MG TAB PO SCH ×3 (05:38→17:12)
[2023-04-11] MEDS: traMADol HCl 50 MG TAB PO SCH ×3 (05:39→20:26)
[2023-04-11] MEDS: Carvedilol 6.25 MG TAB PO SCH ×2 (10:22→20:25)
[2023-04-11] MEDS: Amlodipine 5 MG TAB PO SCH (10:22)
[2023-04-11] MEDS: Lisinopril 20 MG TAB PO SCH (10:23)
[2023-04-11] MEDS: Levothyroxine Sodium 125 MCG TAB PO SCH (10:23)
[2023-04-11] MEDS: Senokot S 8.6-50 MG TAB PO SCH ×2 (10:23→20:26)
[2023-04-11] MEDS: Famotidine 20 MG TAB PO SCH (10:24)
[2023-04-11] MEDS: Gabapentin 100 MG CAP PO SCH ×3 (10:24→20:25)
[2023-04-11] MEDS: Polyethylene Glycol 3350 17 GM Packet PO SCH (13:22)
[2023-04-11] MEDS: Clopidogrel Bisulfate 75 MG TAB PO SCH (20:26)
[2023-04-11] MEDS ORDERED: Atorvastatin Calcium 40 MG TAB PO SCH (21:00)
[2023-04-11] MEDS ORDERED: Non-Formulary Item 1 EACH (Atorvastatin Calcium [Lipitor] 80 MG Tablet) PO SCH (21:00)
[2023-04-12] MEDS: Acetaminophen 500 MG TAB PO SCH ×3 (00:05→14:14)
[2023-04-12] MEDS: Ipratropium/Albuterol 3 ML NEB NEB SCH ×3 (00:33→14:01)
[2023-04-12] MEDS: traMADol HCl 50 MG TAB PO SCH (06:19)
[2023-04-12] MEDS: Levothyroxine Sodium 125 MCG TAB PO SCH (09:35)
[2023-04-12] MEDS: Carvedilol 6.25 MG TAB PO SCH (09:35)
[2023-04-12] MEDS: Senokot S 8.6-50 MG TAB PO SCH (09:35)
[2023-04-12] MEDS: Lisinopril 20 MG TAB PO SCH (09:36)
[2023-04-12] MEDS: Gabapentin 100 MG CAP PO SCH (09:36)
[2023-04-12] MEDS: Amlodipine 5 MG TAB PO SCH (09:37)
[2023-04-12] MEDS: Famotidine 20 MG TAB PO SCH (09:38)
[2023-04-12] MEDS: Polyethylene Glycol 3350 17 GM Packet PO SCH (10:05)
[2023-04-12 11:38] VITALS: BP 124/84; TEMP 97.7
== END 2023-04-12 14:20 | disposition home or self-care (01) | DRG 552 ==
LOC: ERS 19:35 → ERHOLD 22:53 → SURG A 04-10 12:51 → 2NO 04-10 20:53
PROVIDERS: ADMIT Specialist; ATTEND Specialist
DX: S12.190A Other displaced fracture of second cervical vertebra, initial encounter for closed fracture (principal); E87.1 Hypo-osmolality and hyponatremia; E03.9 Hypothyroidism, unspecified; E78.5 Hyperlipidemia, unspecified; I50.9 Heart failure, unspecified; I48.91 Unspecified atrial fibrillation; G89.29 Other chronic pain; I25.10 Atherosclerotic heart disease of native coronary artery without angina pectoris; M25.362 Other instability, left knee; W19.XXXA Unspecified fall, initial encounter; I11.0 Hypertensive heart disease with heart failure; I25.2 Old myocardial infarction; Z98.890 Other specified postprocedural states; Z95.5 Presence of coronary angioplasty implant and graft; Z88.8 Allergy status to other drugs, medicaments and biological substances; Z87.891 Personal history of nicotine dependence; Y92.009 Unspecified place in unspecified non-institutional (private) residence as the place of occurrence of the external cause
CPT/HCPCS: 36415; 36416; 70450; 70498; 72125; 80048; 83735; 84100; 90714; 93005; 94640; G0390; J7050; J7620; Q9967